=== PATIENT | male | born 1965 | race Caucasian/White ===

== ENCOUNTER → 2017-01-24 | Outpatient (CLI) | payer OTHER ==
--- NOTE | ~2017-01-24 | US6 ---
[facility] A Service of [facility] RADIOLOGY TEXT RESULTS PATIENT: HANNAH SMITH LOCATION: SGUS : 67 UNIT #: [id number] AGE: [address]: BROOKS NATARAJAN MD SEX: M ORDER DR: [id number] [address] [address] [id number] O MR#: [id number] Acc #: [id number] NAME: HANNAH SMITH : 1965 SEX: M STUDY DATE/TIME: 01/24/2017 8:09 UNIT: [facility] ROOM: STUDY DESCRIPTION: US Abdominal Limited Attending Physician: Brooks Natarajan Referring Physician: Brooks Natarajan Ordering Physician: Jarek Natarajan M.D. Primary Care Physician: Brooks Natarajan MEDICAL IMAGING REPORT This report is preliminary unless electronic signature is present. EXAM Right upper quadrant ultrasound 01/24/2017 INDICATIONS Elevated bilirubin levels in a 51-year-old male. Symptoms of elevated bilirubin for two weeks. TECHNIQUE Sonographic imaging of the right upper quadrant was performed. No comparisons. FINDINGS The pancreas was mostly obscured by bowel gas and not well visualized or assessed. Survey images of the liver are within normal limits. There is no focal mass, intrahepatic ductal dilatation or ascites. Liver measures 17.6 cm long axis. The gallbladder demonstrates no shadowing stone. No sonographic Lundy sign was described. The gallbladder is not well distended and the gallbladder wall was measured as mildly thickened at 5-6 mm by the technologist but no sonographic Lundy sign was described. No pericholecystic fluid present. The measured thickness of the gallbladder wall was felt to be exaggerated by oblique imaging. Extrahepatic common bile duct measures 4-5 mm. Right kidney measures 10.8 cm long axis and is nonobstructed. IMPRESSION. 1. Essentially negative right upper quadrant ultrasound. The gallbladder wall was measured as thickened but this is felt to be artifactual and exaggerated for the reasons described above. No intra or extrahepatic biliary ductal dilatation. No evidence of cholelithiasis or sonographic Lundy sign. [facility] A Service of [facility] RADIOLOGY TEXT RESULTS PATIENT: HANNAH SMITH LOCATION: [facility] : 67 UNIT #: [id number] AGE: [address]: BROOKS NATARAJAN MD SEX: M ORDER DR: Dictated by... Bridger José M.D. THIS IS AN ELECTRONICALLY VERIFIED REPORT Bridger José M.D. at 01/24/2017 4:30 PM Javi TD: 01/24/2017 13:31 JOB #: [id number] MEDICAL IMAGING REPORT Page 1 of 1
== END | disposition home or self-care (01) ==
LOC: SGUS 07:53
DX: R17 Unspecified jaundice (principal); K82.8 Other specified diseases of gallbladder
CPT/HCPCS: 76705